=== PATIENT | male | born 1965 | race Two or more races ===

== ENCOUNTER 2023-07-10 15:16 | Emergency (ER) | payer MEDICAID ==
[~2023-07-10] VITALS: Ht 180.3 cm; Wt 110.0 kg
[2023-07-10 16:11] VITALS: BP 158/106; PULSE 98; RESP 16; TEMP 97.7; O2SAT 98
[2023-07-10] MEDS ORDERED: TETanus/Pertussis (Acell)/Diphther VAC/PF (Tdap-Adult) 0.5ml syringe IMVAC ONE (16:50)
[2023-07-10] MEDS ORDERED: LIDOcaine 1% W/epiNEPHrine 1:200,000 10ml vial IJ ONE (16:50)
[2023-07-10] MEDS ORDERED: LIDOcaine 1% W/epiNEPHrine 1:100,000 20ml vial SQ ONE (17:05)
[2023-07-10] MEDS ORDERED: cephalexin 250mg capsule PO ONE (17:15)
[2023-07-10] MEDS ORDERED: sulfamethoxazole/trimethoprim DS (800/160mg) tablet PO ONE (17:15)
[2023-07-10] MEDS ORDERED: CEPH-585 PO (17:16)
[2023-07-10] MEDS ORDERED: SULF1TAB45 PO (17:16)
== END 2023-07-10 18:29 | disposition home or self-care (01) ==
LOC: ER 15:16
DX: L02.511 Cutaneous abscess of right hand (principal); Z88.1 Allergy status to other antibiotic agents; Z79.899 Other long term (current) drug therapy
CPT/HCPCS: 26010; 90471; 90715; 99283; A6449